=== PATIENT | female | born 1990 | race Two or more races ===

== ENCOUNTER 2021-04-11 17:55 | Emergency (ER) | payer MEDICAID, OTHER ==
[~2021-04-11] VITALS: Ht 160 cm; Wt 45.8 kg
[2021-04-11 22:00] VITALS: BP 94/45
== END 2021-04-11 23:16 | disposition home or self-care (01) ==
LOC: EDBD 17:55 → ER 17:55
DX: J20.9 Acute bronchitis, unspecified (principal); J45.909 Unspecified asthma, uncomplicated; Z76.0 Encounter for issue of repeat prescription
CPT/HCPCS: 93005